=== PATIENT | female | born 1930 | race Caucasian/White ===

== ENCOUNTER 2018-10-04 13:25 | Inpatient (IN) ==
[2018-10-04 14:34] LABS: Hematocrit 32.5 % (37.0-47.0); Hemoglobin 10.4 g/dL (12.2-16.2); Lymphocytes # 0.4 K/mm3 (0.7-4.5); Lymphocytes % 2.8 % (10-50); Mean Corpuscular HGB Conc 31.9 g/dL (31.8-35.4); Mean Corpuscular Volume 96.6 fl (81-99); Mean Platelet Volume 6.3 fl (7.4-10.4); Monocytes # 1.1 K/mm3 (0.1-1.0); Monocytes % 7.9 % (1.7-9.3); Neutrophils % 89.3 % (37.0-80.0); Platelet Count 475 K/mm3 (142-424); Red Blood Count 3.37 M/mm3 (4.20-5.40); Red Cell Distribution Width 13.6 % (11.5-17.5); White Blood Count 13.5 K/mm3 (4.8-10.8)
--- NOTE | 2018-10-04 14:35 | Emergency Department Note ---
ED Disposition Clinical Impression: UTI (urinary tract infection), Pneumonia Disposition: Admitted as Observation Condition on Discharge: Fair Instructions: DI for Altered Mental Status Referrals: Pb Durham MD [Primary Care Provider] - Time of Disposition: 16:32 - Critical Care Critical Care Time: No Attestation: On 10/04/18, the high probability of a clinically significant, sudden or life threatening deterioration of the following system(s) required my full and direct attention, intervention and personal management. The time I documented below is in addition to time spent performing reported procedures but includes the following listed in this critical care notation. Medical Decision Making - Maury Inquiry Pt receiving controlled substance: No Maury was queried for this patient: No Vital Signs: 10/04/18 13:47 10/04/18 14:25 10/04/18 15:46 Temperature 98.2 F Temperature Source Rectal Pulse Rate [Left Radial] 122 H 114 H 86 Respiratory Rate 20 20 20 Blood Pressure [Right Arm] 135/72 134/84 132/68 Blood Pressure Mean [Right Arm] 93 100 89 Blood Pressure Source [Right Arm] Automatic Cuff Automatic Cuff Automatic Cuff Blood Pressure Position [Right Arm] Sitting Supine Supine 02 Sat by Pulse Oximetry 96 100 Oxygen Delivery Method Nasal Cannula Room Air Oxygen Flow Rate (LPM) 2 - Lab Data Lab results reviewed: Yes: I reviewed the patient's lab results. Lab Results 10/04/18 14:23: WBC 13.5 H, RBC 3.37 L, Hgb 10.4 L, Hct 32.5 L, MCV 96.6, MCH 30.8, MCHC 31.9, RDW 13.6, Plt Count 475 H, MPV 6.3 L, Neut % (Auto) 89.3 H, Lymph % (Auto) 2.8 L, [place] % (Auto) 7.9, Eos % (Auto) 0.0 L, Baso % (Auto) 0.0 L , Neut # (Auto) 12.0 H, Lymph # (Auto) 0.4 L, [place] # (Auto) 1.1 H, Eos # (Auto) 0.0, Baso # (Auto) 0.0, Total Counted 100, Neutrophils % (Manual) 92 H, Band Neutrophils % 6.0, Lymphocytes % (Manual) 1 L, Monocytes % (Manual) 1 L, Platelet Estimate Normal, Hypochromasia 1+ 10/04/18 14:23: Sodium 126 L, Potassium 3.0 L, Chloride 89 L, Carbon Dioxide 29, Anion Gap 11.0, BUN 11, Creatinine 0.75, Estimated Creat Clear 29, Estimated GFR 73, Est GFR ( Amer) 89, Glucose 146 H, Calcium 8.8, Total Bilirubin 1.0, AST 26, ALT 30, Alkaline Phosphatase 99, Total Protein 7.1, Albumin 2.5 L, Globulin 4.6 H, Albumin/Globulin Ratio 0.5 L 10/04/18 14:35: Urine Color Dk yellow, Urine Appearance Sl cloudy, Urine pH 6.0, Ur Specific [place] >= 1.030, Urine Protein 1+, Urine Glucose (UA) Negative, Urine Ketones Negative, Urine Blood 1+, Urine Nitrate Negative, Urine Bilirubin Negative, Urine Urobilinogen 4.0, Ur Leukocyte Esterase Negative, Urine WBC 10- 20, Ur Squamous Epith Cells 3-5, Urine Bacteria 4+, Hyaline Casts 5-10, Urine Mucus 4+ 10/04/18 15:15: Ammonia 25 Result diagrams: 10/04/18 14:23 10/04/18 14:23 Orders (Tests/Meds): ED MEDICATIONS Generic Name Dose Route Start Last Admin Trade Name Freq PRN Reason Stop Dose Admin Ceftriaxone Sodium 1 gm/ 50 mls @ 100 mls/hr 10/04/18 15:00 10/04/18 15:26 Sodium Chloride IV 10/18/18 14:59 100 mls/hr Q24H GOPI Administration Protocol Azithromycin 500 mg/ Sodium 250 mls @ 250 mls/hr 10/04/18 15:00 10/04/18 16:15 Chloride IV 10/18/18 14:59 250 mls/hr Q24H GOPI Administration Protocol Sodium Chloride 1,000 mls @ 200 mls/hr 10/04/18 15:15 10/04/18 15:23 Sod Chlor 0.9% 1000ml Bag IV 11/03/18 15:14 200 mls/hr .Q5H GOPI Administration ORDERS Category Date Time Status CT abdomen pelvis wo con Stat Cat Scan 10/04/18 14:03 Taken Urine Culture Stat Micro 10/04/18 14:35 Received - Physician Consults Physician Consulted: kulwant Time: 16:31 Reason -: Admission Altered Mental Status HPI - General Chief Complaint: Altered Mental Status Stated Complaint: ams Time Seen by Provider: 10/04/18 14:21 Mode of Arrival: EMS Source of Information: EMS Limitations: Altered Mental Status Description of Symptoms (Recalled from ER Triage Doc. 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 They went to check on her today and she was found beside her chair and walker on the floor. - History of Present Illness HPI narrative: found on floor gripping a chair. Answers all questions 'yeah". No obvious injuries. Last known "normal" for her was last night. Not sure how long she was on floor. MD complaint: altered mental status - Related Data Allergies Allergy/AdvReac Type Severity Reaction Status Date / Time hydrocodone Allergy Unknown UNKNOWN Verified 10/04/18 14:22 [facility] History - Hepatitis A Screen Drug use history?: No High risk sexual behaviors?: No History of sexually transmitted infection?: No Currently employed?: No Childcare worker?: No Do you have indoor plumbing?: Yes Do you have electricity?: Yes Attestation statement:: This patient has been screened for Hepatitis A risk factors. I have reviewed the patient's past medical history: No - Social History Alcohol Intake: never Occupational Status: retired ROS Obtained: Yes All systems reviewed & no additional complaints, Yes unobtainable due to mental condition Physical Exam - General General appearance: obtunded, other (opens eyes to command, but she is "blind" per family. lives alone) - ENT ENT exam: Present: normal exam, normal oropharynx, mucous membranes moist, TM's normal bilaterally, normal external ear exam - Neck Neck exam: Present: normal inspection, full ROM, trachea midline. Absent: meningismus, lymphadenopathy - Chest Chest inspection: Present: symmetric chest wall rise - Respiratory Respiratory exam: Present: normal lung sounds bilaterally. Absent: respiratory distress - Cardiovascular Cardiovascular exam: Present: normal rhythm, tachycardia. Absent: JVD - Abdominal Exam Abdominal exam: Present: soft, hernia. Absent: distention, tenderness - External exam: Present: normal external exam - Extremities Exam Extremities exam: Present: other (abrasion on right forearm. apparent pain with movement of left leg). Absent: normal inspection - Neurological Exam Neurological exam: Present: CN II-XII intact, other (difficult to assess). Absent: oriented X3 - Psychiatric Psychiatric exam: Present: flat affect - Skin Skin exam: Present: warm, dry, other (dermabrasion right forearm). Absent: intact
[2018-10-04 14:43] LABS: Microscopic, Urine URINE MICROSCOPIC (MICROSCOPIC)
[2018-10-04 14:45] LABS: Appearance,Urine SL CLOUDY (Clear); Blood, Urine 1+ (Negative); Color,Urine DK YELLOW (Yellow); Glucose,Urine (UA) Negative (Negative); Ketones,Urine Negative (Negative); Leukocyte Esterase,Urine Negative (Negative); Protein,Urine 1+ (Negative); Specific Gravity, Urine >= 1.030 (1.005-1.030)
[2018-10-04 14:45] LABS: Albumin Level 2.5 gm/dL (3.4-5.0); Albumin/Globulin Ratio 0.5 (1.1-1.8); Calcium 8.8 mg/dL (8.5-10.1); Globulin 4.6 gm/dl (1.3-3.2); Total Protein,Serum 7.1 gm/dL (6.4-8.2)
[2018-10-04 14:46] LABS: Bilirubin,Urine Negative (Negative)
[2018-10-04 14:52] LABS: Bacteria,Urine 4+ /lpf; Mucus,Urine 4+ /lpf
[2018-10-04 14:55] LABS: Lymphocytes % 1 % (10-50); Monocytes % 1 % (2-9); Neutrophils % 92 % (42-76); Total Cells Counted 100
[2018-10-04 14:56] LABS: Hypochromasia 1+
--- NOTE | 2018-10-04 18:12 | History & Physical Report ---
*Admission Date: 10/04/18 *Chief complaint: Altered mental status *History of present illness: Ms. Oconnor is an 88-year-old white female who was brought to the emergency room today with altered mental status. She has a history of hypertension. 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 She is generally spry and healthy and still lives alone despite these infirmities and her family checks on her regularly. She was last seen in her usual state of health last night. According to the family she has not been feeling well for about a week. She had diarrhea one day. She has not been eating or drinking well at home the past several days. She was found on the floor in her home this morning with altered mental status and was brought to the emergency room. She has been worked up in the ER and diagnosed with pneumonia, urinary tract infection, dehydration, and electrolyte imbalance. [facility] History Medical History: Reports:: Atrial Fibrillation, Hypertension, Valvular Heart Disease (Aortic stenosis) Denies:: Atherosclerotic Heart Disease, Congestive Heart Failure, Chronic Obstructive Pulmonary Disease (COPD), Diabetes Mellitus Type 2 *Have you ever received a pneumonia vaccine?: No *Have you received a flu vaccine this season?: No Other Medical History: Reports: Arthritis, Glaucoma. Denies: Hypothyroidism Laterality Cases: Bilateral: Cataract Other Surgeries: Yes: Other (Hemorrhoid surgery and several eye procedures) Amputation: No Fractures: Yes - *Social History Smoking Status: Former smoker (Quit 2001) Alcohol Intake: never *Occupational Status:: retired *Travel in the last 8 weeks: None Family Hx:: Cancer, Coronary Artery Disease, Hypertension, Stroke Review of Systems - Review of Systems Review of systems:: unable to obtain (Due to altered mental status) Meds Home Medications Medication Instructions Recorded Confirmed Type Amlodipine Besylate 10 mg PO DAILY 10/05/18 10/05/18 History Brimonidine Tartrate [Alphagan 1 drp EYE-BOTH TID 10/05/18 10/05/18 History 0.2% Ophth Soln 5mL] Latanoprost [Xalatan 0.005% Ophth 1 drp EYE-BOTH HS 10/05/18 10/05/18 History Soln 2.5mL] Allergies Allergy/AdvReac Type Severity Reaction Status Date / Time hydrocodone Allergy Unknown UNKNOWN Verified 10/04/18 14:22 Exam Vital signs and Labs for Last 24 Hours: Temp Pulse Resp BP Pulse Ox 98.2 F 89 18 125/79 91 L 10/04/18 17:55 10/04/18 17:55 10/04/18 17:55 10/04/18 17:55 10/04/18 17:55 Laboratory Results - last 24 hr 10/04/18 14:23: WBC 13.5 H, RBC 3.37 L, Hgb 10.4 L, Hct 32.5 L, MCV 96.6, MCH 30.8, MCHC 31.9, RDW 13.6, Plt Count 475 H, MPV 6.3 L, Neut % (Auto) 89.3 H, Lymph % (Auto) 2.8 L, [place] % (Auto) 7.9, Eos % (Auto) 0.0 L, Baso % (Auto) 0.0 L , Neut # (Auto) 12.0 H, Lymph # (Auto) 0.4 L, [place] # (Auto) 1.1 H, Eos # (Auto) 0.0, Baso # (Auto) 0.0, Total Counted 100, Neutrophils % (Manual) 92 H, Band Neutrophils % 6.0, Lymphocytes % (Manual) 1 L, Monocytes % (Manual) 1 L, Platelet Estimate Normal, Hypochromasia 1+ 10/04/18 14:23: Sodium 126 L, Potassium 3.0 L, Chloride 89 L, Carbon Dioxide 29, Anion Gap 11.0, BUN 11, Creatinine 0.75, Estimated Creat Clear 29, Estimated GFR 73, Est GFR ( Amer) 89, Glucose 146 H, Calcium 8.8, Total Bilirubin 1.0, AST 26, ALT 30, Alkaline Phosphatase 99, Total Protein 7.1, Albumin 2.5 L, Globulin 4.6 H, Albumin/Globulin Ratio 0.5 L 10/04/18 14:35: Urine Color Dk yellow, Urine Appearance Sl cloudy, Urine pH 6.0, Ur Specific [place] >= 1.030, Urine Protein 1+, Urine Glucose (UA) Negative, Urine Ketones Negative, Urine Blood 1+, Urine Nitrate Negative, Urine Bilirubin Negative, Urine Urobilinogen 4.0, Ur Leukocyte Esterase Negative, Urine WBC 10- 20, Ur Squamous Epith Cells 3-5, Urine Bacteria 4+, Hyaline Casts 5-10, Urine Mucus 4+ 10/04/18 15:15: Ammonia 25 I & O for Last 24 hours: Intake & Output 10/02/18 10/03/18 10/04/18 10/05/18 11:59 11:59 11:59 11:59 Weight 90 lb Narrative: She is lying in bed. She appears in no respiratory distress. Color is slightly pale. She opens her eyes but does not respond appropriately to questions. She answers "yes" to every question. Shows the cranium is atraumatic and normocephalic. The sclera conjunctive are clear. Nares patent. Oropharynx shows dry mucous membranes. Neck is supple with no masses or bruits. Heart is tachycardic with irregularly irregular rhythm. There is a grade 1/6 to 2/6 systolic murmur. Lungs with coarse breath sounds and scattered rhonchi. Diminished BS in right base. Abdomen is thin, soft, nondistended. No apparent tenderness. Extremities show no edema. Right arm is wrapped in gauze. Assessment and Plan (1) Altered mental status Current visit: Yes Status: Acute Category: Medical Code(s): R41.82 - Altered mental status, unspecified (2) Hyponatremia Current visit: Yes Status: Acute Category: Medical Code(s): E87.1 - Hypo- osmolality and hyponatremia (3) Hypokalemia Current visit: Yes Status: Acute Category: Medical Code(s): E87.6 - Hypokalemia (4) Hypertension Current visit: Yes Status: Acute Category: Medical Code(s): I10 - Essential (primary) hypertension (5) SIRS (systemic inflammatory response syndrome) Current visit: Yes Status: Acute Category: Medical Code(s): R65.10 - Systemic inflammatory response syndrome (SIRS) of non-infectious origin without acute organ dysfunction (6) Aortic stenosis Current visit: Yes Status: Acute Category: Medical Code(s): I35.0 - Nonrheumatic aortic (valve) stenosis (7) Glaucoma Current visit: Yes Status: Acute Category: Medical Code(s): H40.9 - Unspecified glaucoma (8) Legally blind Current visit: Yes Status: Acute Category: Medical Code(s): H54.8 - Legal blindness, as defined in [place] (9) Pneumonia Current visit: Yes Status: Acute Category: Medical Code(s): J18.9 - Pneumonia, unspecified organism (10) UTI (urinary tract infection) Current visit: Yes Status: Acute Category: Medical Code(s): N39.0 - Urinary tract infection, site not specified - Assessment and plan all Dx Assessment and Plan for all problems:: She is admitted for further treatment and evaluation. Her altered mental status is most likely on the basis of infection, electrolyte abnormalities, and dehydration although cannot rule out a neurologic event. Her initial noncontrast CT scan shows nothing acute but may require further evaluation if she does not respond appropriately to treatment of her infections. She has empirically been started on IV Rocephin and Zithromax pending results of cultures. In regards to her aortic stenosis, her last echo in 2017 showed a 20 mm gradient. She has elected not to pursue any intervention or further testing for this. She has noted a DNR status and her wishes will be honored.
--- NOTE | 2018-10-05 07:33 | Pharmacy Consult Notes ---
[facility] Pharmacy VTE Monitoring - Patient Demographics Admission date: 10/04/18 Report Date: 10/05/18 Time: 07:33 Allergies/Adverse Reactions: Patient Allergies hydrocodone Allergy (Unknown, Verified 10/04/18 14:22) UNKNOWN Height: 1.57 m Weight: 40.823 kg Patient Problems: Current Active Problems UTI (urinary tract infection) (Acute) Pneumonia (Acute) Altered mental status (Acute) Hyponatremia (Acute) Hypokalemia (Acute) Hypertension (Acute) SIRS (systemic inflammatory response syndrome) (Acute) Aortic stenosis (Acute) Glaucoma (Acute) Legally blind (Acute) - VTE Risk Labs: VTE Related Lab Results Hgb 10.4 g/dL (12.2-16.2) L 10/04/18 14:23 Hct 32.5 % (37.0-47.0) L 10/04/18 14:23 Plt Count 475 K/mm3 (142-424) H 10/04/18 14:23 BUN 11 mg/dL (7-18) 10/04/18 14:23 Creatinine 0.75 mg/dL (0.55-1.02) 10/04/18 14:23 Estimated Creat Clear 29 mL/min (50-200) 10/04/18 14:23 VTE Score: 2 VTE Risk Level: Very Low Risk - Prophylaxis VTE Prophylaxis Ordered?: Yes Types of VTE Prophylaxis: TEDS Knee High Location of Applied Device: Bilateral Lower Extremeties - VTE Diagnosis Confirmed Treatment or plan recommended: Continue Current Treatment
[2018-10-05 07:37] LABS: Anion Gap 8.2 mEq/L (5-15); Calcium 8.2 mg/dL (8.5-10.1)
[2018-10-05 08:01] LABS: Basophils % 0.1 % (0.1-2.0); Eosinophils % 0.1 % (0.1-12.0); Hematocrit 32.9 % (37.0-47.0); Hemoglobin 10.7 g/dL (12.2-16.2); Lymphocytes # 0.6 K/mm3 (0.7-4.5); Lymphocytes % 4.7 % (10-50); Mean Corpuscular HGB Conc 32.5 g/dL (31.8-35.4); Mean Corpuscular Volume 96.1 fl (81-99); Mean Platelet Volume 7.1 fl (7.4-10.4); Monocytes # 1.3 K/mm3 (0.1-1.0); Monocytes % 10.9 % (1.7-9.3); Neutrophils # 9.8 K/mm3 (1.8-7.8); Neutrophils % 84.2 % (37.0-80.0); Platelet Count 431 K/mm3 (142-424); Red Blood Count 3.42 M/mm3 (4.20-5.40); Red Cell Distribution Width 13.5 % (11.5-17.5); White Blood Count 11.6 K/mm3 (4.8-10.8)
--- NOTE | 2018-10-05 08:29 | Progress Note ---
<Mary Ohara - Last Filed: 10/05/18 08:25> Internal Medicine - PN: Subj *Date: 10/05/18 *Time: 08:25 Interval history: Patient answers okay to every question. She is disoriented. Per nursing: She became agitated during the night when being given a bath at 4 AM.. Was eventually calmed. She only took a few bites of breakfast. Exam Vital signs and Labs for Last 24 Hours: Temp Pulse Resp BP Pulse Ox 98.0 F 86 15 127/73 96 10/05/18 08:00 10/05/18 08:00 10/05/18 08:00 10/05/18 08:00 10/05/18 08:00 Laboratory Results - last 24 hr 10/04/18 14:23: WBC 13.5 H, RBC 3.37 L, Hgb 10.4 L, Hct 32.5 L, MCV 96.6, MCH 30.8, MCHC 31.9, RDW 13.6, Plt Count 475 H, MPV 6.3 L, Neut % (Auto) 89.3 H, Lymph % (Auto) 2.8 L, [place] % (Auto) 7.9, Eos % (Auto) 0.0 L, Baso % (Auto) 0.0 L , Neut # (Auto) 12.0 H, Lymph # (Auto) 0.4 L, [place] # (Auto) 1.1 H, Eos # (Auto) 0.0, Baso # (Auto) 0.0, Total Counted 100, Neutrophils % (Manual) 92 H, Band Neutrophils % 6.0, Lymphocytes % (Manual) 1 L, Monocytes % (Manual) 1 L, Platelet Estimate Normal, Hypochromasia 1+ 10/04/18 14:23: Sodium 126 L, Potassium 3.0 L, Chloride 89 L, Carbon Dioxide 29, Anion Gap 11.0, BUN 11, Creatinine 0.75, Estimated Creat Clear 29, Estimated GFR 73, Est GFR ( Amer) 89, Glucose 146 H, Calcium 8.8, Total Bilirubin 1.0, AST 26, ALT 30, Alkaline Phosphatase 99, Total Protein 7.1, Albumin 2.5 L, Globulin 4.6 H, Albumin/Globulin Ratio 0.5 L 10/04/18 14:35: Urine Color Dk yellow, Urine Appearance Sl cloudy, Urine pH 6.0, Ur Specific [place] >= 1.030, Urine Protein 1+, Urine Glucose (UA) Negative, Urine Ketones Negative, Urine Blood 1+, Urine Nitrate Negative, Urine Bilirubin Negative, Urine Urobilinogen 4.0, Ur Leukocyte Esterase Negative, Urine WBC 10- 20, Ur Squamous Epith Cells 3-5, Urine Bacteria 4+, Hyaline Casts 5-10, Urine Mucus 4+ 10/04/18 15:15: Ammonia 25 10/04/18 18:11: Lactate 1.5 10/05/18 07:07: WBC 11.6 H, RBC 3.42 L, Hgb 10.7 L, Hct 32.9 L, MCV 96.1, MCH 31.2, MCHC 32.5, RDW 13.5, Plt Count 431 H, MPV 7.1 L, Neut % (Auto) 84.2 H, Lymph % (Auto) 4.7 L, [place] % (Auto) 10.9 H, Eos % (Auto) 0.1, Baso % (Auto) 0.1, Neut # (Auto) 9.8 H, Lymph # (Auto) 0.6 L, [place] # (Auto) 1.3 H, Eos # (Auto) 0.0, Baso # (Auto) 0.0 10/05/18 07:07: Sodium 124 L, Potassium 3.2 L, Chloride 89 L, Carbon Dioxide 30, Anion Gap 8.2, BUN 5 L D, Creatinine 0.44 L D, Estimated Creat Clear 26, Estimated GFR 136, Est GFR ( Amer) 164 D, Glucose 73 L D, Calcium 8.2 L I & O for Last 24 hours: Intake & Output 10/02/18 10/03/18 10/04/18 10/05/18 11:59 11:59 11:59 11:59 Intake Total 1231 / 1231 Output Total 1675 / 1675 Balance -444 / -444 Weight 90 lb Radiology Reports for the Last 24 Hours: 10/04/2018 cervical spine x-ray IMPRESSION: 1. No acute fracture. 2. Postsurgical and degenerative changes as described above 10/04/[address] IMPRESSION: No acute intracranial findings 10/04/2018 pelvic x-ray IMPRESSION: No acute finding 10/04/2018 chest x-ray IMPRESSION: Right lower lobe pneumonia with effusion. Chronic changes 10/04/[address] IMPRESSION: 1. Right lower lobe pneumonia with effusion. 2. Severe constipation. Gas-filled loops of small and large bowel are also noted which could be due to ileus as well. - Constitutional no acute distress Comments: Lying on her back with eyes wide open. Dyspnea when assisted to sitting position for chest assessment. Unable to sit without help. - *Routine Respiratory Exam Comments: Diminished breath sounds on the right. - *Routine Cardiovascular Exam Present: irregular rhythm Comments: Systolic murmur grade 2/6 - *Routine Abdominal Exam Present: soft, normoactive bowel sounds. Absent: tenderness - *Routine Extremities Exam Absent: edema, calf tenderness - *Routine Skin Exam Present: dry - *Routine Neurological Exam Present: alert. Absent: oriented X3 Assessment and Plan (1) Altered mental status Current visit: Yes Status: Acute Category: Medical Code(s): R41.82 - Altered mental status, unspecified (2) Hyponatremia Current visit: Yes Status: Acute Category: Medical Code(s): E87.1 - Hypo- osmolality and hyponatremia (3) Hypokalemia Current visit: Yes Status: Acute Category: Medical Code(s): E87.6 - Hypokalemia (4) Hypertension Current visit: Yes Status: Acute Category: Medical Code(s): I10 - Essential (primary) hypertension (5) SIRS (systemic inflammatory response syndrome) Current visit: Yes Status: Acute Category: Medical Code(s): R65.10 - Systemic inflammatory response syndrome (SIRS) of non-infectious origin without acute organ dysfunction (6) Aortic stenosis Current visit: Yes Status: Acute Category: Medical Code(s): I35.0 - Nonrheumatic aortic (valve) stenosis (7) Glaucoma Current visit: Yes Status: Acute Category: Medical Code(s): H40.9 - Unspecified glaucoma (8) Legally blind Current visit: Yes Status: Acute Category: Medical Code(s): H54.8 - Legal blindness, as defined in [place] (9) Pneumonia Current visit: Yes Status: Acute Category: Medical Code(s): J18.9 - Pneumonia, unspecified organism (10) UTI (urinary tract infection) Current visit: Yes Status: Acute Category: Medical Code(s): N39.0 - Urinary tract infection, site not specified (11) Constipation Current visit: Yes Status: Acute Category: Medical Code(s): K59.00 - Constipation, unspecified - Assessment and plan all Dx Assessment and Plan for all problems:: We need Dulcolax suppository. Continue with antibiotics, IV fluids, and will initiate duo nebs <Brent Coleian - Last Filed: 10/05/18 08:59> Internal Medicine - PN: Subj *Date: 10/05/18 *Time: 08:59 Exam Vital signs and Labs for Last 24 Hours: Temp Pulse Resp BP Pulse Ox 98.0 F 86 15 127/73 96 10/05/18 08:00 10/05/18 08:00 10/05/18 08:00 10/05/18 08:00 10/05/18 08:00 Laboratory Results - last 24 hr 10/04/18 14:23: WBC 13.5 H, RBC 3.37 L, Hgb 10.4 L, Hct 32.5 L, MCV 96.6, MCH 30.8, MCHC 31.9, RDW 13.6, Plt Count 475 H, MPV 6.3 L, Neut % (Auto) 89.3 H, Lymph % (Auto) 2.8 L, [place] % (Auto) 7.9, Eos % (Auto) 0.0 L, Baso % (Auto) 0.0 L , Neut # (Auto) 12.0 H, Lymph # (Auto) 0.4 L, [place] # (Auto) 1.1 H, Eos # (Auto) 0.0, Baso # (Auto) 0.0, Total Counted 100, Neutrophils % (Manual) 92 H, Band Neutrophils % 6.0, Lymphocytes % (Manual) 1 L, Monocytes % (Manual) 1 L, Platelet Estimate Normal, Hypochromasia 1+ 10/04/18 14:23: Sodium 126 L, Potassium 3.0 L, Chloride 89 L, Carbon Dioxide 29, Anion Gap 11.0, BUN 11, Creatinine 0.75, Estimated Creat Clear 29, Estimated GFR 73, Est GFR ( Amer) 89, Glucose 146 H, Calcium 8.8, Total Bilirubin 1.0, AST 26, ALT 30, Alkaline Phosphatase 99, Total Protein 7.1, Albumin 2.5 L, Globulin 4.6 H, Albumin/Globulin Ratio 0.5 L 10/04/18 14:35: Urine Color Dk yellow, Urine Appearance Sl cloudy, Urine pH 6.0, Ur Specific [place] >= 1.030, Urine Protein 1+, Urine Glucose (UA) Negative, Urine Ketones Negative, Urine Blood 1+, Urine Nitrate Negative, Urine Bilirubin Negative, Urine Urobilinogen 4.0, Ur Leukocyte Esterase Negative, Urine WBC 10- 20, Ur Squamous Epith Cells 3-5, Urine Bacteria 4+, Hyaline Casts 5-10, Urine Mucus 4+ 10/04/18 15:15: Ammonia 25 10/04/18 18:11: Lactate 1.5 10/05/18 07:07: WBC 11.6 H, RBC 3.42 L, Hgb 10.7 L, Hct 32.9 L, MCV 96.1, MCH 31.2, MCHC 32.5, RDW 13.5, Plt Count 431 H, MPV 7.1 L, Neut % (Auto) 84.2 H, Lymph % (Auto) 4.7 L, [place] % (Auto) 10.9 H, Eos % (Auto) 0.1, Baso % (Auto) 0.1, Neut # (Auto) 9.8 H, Lymph # (Auto) 0.6 L, [place] # (Auto) 1.3 H, Eos # (Auto) 0.0, Baso # (Auto) 0.0 10/05/18 07:07: Sodium 124 L, Potassium 3.2 L, Chloride 89 L, Carbon Dioxide 30, Anion Gap 8.2, BUN 5 L D, Creatinine 0.44 L D, Estimated Creat Clear 26, Estimated GFR 136, Est GFR ( Amer) 164 D, Glucose 73 L D, Calcium 8.2 L I & O for Last 24 hours: Intake & Output 10/02/18 10/03/18 10/04/18 10/05/18 23:59 23:59 23:59 23:59 Intake Total 100 / 100 1131 / 1131 Output Total 775 / 775 900 / 900 Balance -675 / -675 231 / 231 Weight 90 lb 90 lb Assessment and Plan (1) Altered mental status Current visit: Yes Status: Acute Category: Medical Code(s): R41.82 - Altered mental status, unspecified (2) Hyponatremia Current visit: Yes Status: Acute Category: Medical Code(s): E87.1 - Hypo- osmolality and hyponatremia (3) Hypokalemia Current visit: Yes Status: Acute Category: Medical Code(s): E87.6 - Hypokalemia (4) Hypertension Current visit: Yes Status: Acute Category: Medical Code(s): I10 - Essential (primary) hypertension (5) SIRS (systemic inflammatory response syndrome) Current visit: Yes Status: Acute Category: Medical Code(s): R65.10 - Systemic inflammatory response syndrome (SIRS) of non-infectious origin without acute organ dysfunction (6) Aortic stenosis Current visit: Yes Status: Acute Category: Medical Code(s): I35.0 - Nonrheumatic aortic (valve) stenosis (7) Glaucoma Current visit: Yes Status: Acute Category: Medical Code(s): H40.9 - Unspecified glaucoma (8) Legally blind Current visit: Yes Status: Acute Category: Medical Code(s): H54.8 - Legal blindness, as defined in [place] (9) Pneumonia Current visit: Yes Status: Acute Category: Medical Code(s): J18.9 - Pneumonia, unspecified organism (10) UTI (urinary tract infection) Current visit: Yes Status: Acute Category: Medical Code(s): N39.0 - Urinary tract infection, site not specified (11) Constipation Current visit: Yes Status: Acute Category: Medical Code(s): K59.00 - Constipation, unspecified - Assessment and plan all Dx Assessment and Plan for all problems:: Saw patient, agree with above note.
[2018-10-06 07:04] LABS: Basophils % 0.1 % (0.1-2.0); Hematocrit 34.2 % (37.0-47.0); Hemoglobin 10.7 g/dL (12.2-16.2); Lymphocytes # 0.5 K/mm3 (0.7-4.5); Lymphocytes % 4.5 % (10-50); Mean Corpuscular HGB Conc 31.1 g/dL (31.8-35.4); Mean Corpuscular Volume 98.3 fl (81-99); Mean Platelet Volume 6.5 fl (7.4-10.4); Monocytes # 0.8 K/mm3 (0.1-1.0); Monocytes % 7.8 % (1.7-9.3); Neutrophils # 8.7 K/mm3 (1.8-7.8); Neutrophils % 87.5 % (37.0-80.0); Platelet Count 493 K/mm3 (142-424); Red Blood Count 3.48 M/mm3 (4.20-5.40); Red Cell Distribution Width 13.4 % (11.5-17.5); White Blood Count 9.9 K/mm3 (4.8-10.8)
[2018-10-06 07:07] LABS: Anion Gap 13.1 mEq/L (5-15); Calcium 8.5 mg/dL (8.5-10.1)
--- NOTE | 2018-10-06 08:05 | Progress Note ---
<Lizzie Espinoza - Last Filed: 10/06/18 08:02> Internal Medicine - PN: Subj *Date: 10/06/18 *Time: 08:02 Interval history: Patient is very confused and somewhat agitated this morning. She asks for milk but when given milk she says that is not what she wants. She is able to answer a few questions. She states she is not hungry. Exam Vital signs and Labs for Last 24 Hours: Temp Pulse Resp BP Pulse Ox 97.7 F 80 20 135/67 94 L 10/06/18 04:00 10/06/18 05:44 10/06/18 04:00 10/06/18 04:00 10/06/18 05:44 Laboratory Results - last 24 hr 10/05/18 07:07: WBC 11.6 H, RBC 3.42 L, Hgb 10.7 L, Hct 32.9 L, MCV 96.1, MCH 31.2, MCHC 32.5, RDW 13.5, Plt Count 431 H, MPV 7.1 L, Neut % (Auto) 84.2 H, Lymph % (Auto) 4.7 L, [place] % (Auto) 10.9 H, Eos % (Auto) 0.1, Baso % (Auto) 0.1, Neut # (Auto) 9.8 H, Lymph # (Auto) 0.6 L, [place] # (Auto) 1.3 H, Eos # (Auto) 0.0, Baso # (Auto) 0.0 10/06/18 06:38: WBC 9.9, RBC 3.48 L, Hgb 10.7 L, Hct 34.2 L, MCV 98.3, MCH 30.6, MCHC 31.1 L, RDW 13.4, Plt Count 493 H, MPV 6.5 L, Neut % (Auto) 87.5 H, Lymph % (Auto) 4.5 L, [place] % (Auto) 7.8, Eos % (Auto) 0.0 L, Baso % (Auto) 0.1, Neut # (Auto) 8.7 H, Lymph # (Auto) 0.5 L, [place] # (Auto) 0.8, Eos # (Auto) 0.0, Baso # (Auto) 0.0 10/06/18 06:38: Sodium 130 L, Potassium 3.1 L, Chloride 95 L, Carbon Dioxide 25, Anion Gap 13.1, BUN 6 L, Creatinine 0.42 L, Estimated Creat Clear 26, Estimated GFR 143, Est GFR ( Amer) 173, Glucose 69 L, Calcium 8.5 I & O for Last 24 hours: Intake & Output 10/03/18 10/04/18 10/05/18 10/06/18 11:59 11:59 11:59 11:59 Intake Total 1231 / 1231 2401 / 2401 Output Total 1675 / 1675 1225 / 1225 Balance -444 / -444 1176 / 1176 Weight 90 lb 89 lb 1.6 oz Microbiology Reports for the Last 24 Hours: Microbiology 10/04/18 14:35 Urine,Catheterized Urine Culture - Preliminary NO GROWTH AFTER 24 HOURS - Constitutional no acute distress - *Routine Respiratory Exam Present: decreased breath sounds - *Routine Cardiovascular Exam Present: RRR, irregular rhythm - *Routine Abdominal Exam Present: soft, normoactive bowel sounds. Absent: tenderness - *Routine Extremities Exam Absent: cyanosis, clubbing, edema - *Routine Skin Exam Present: warm. Absent: rash - *Routine Neurological Exam Present: altered mental status Assessment and Plan (1) Altered mental status Current visit: Yes Status: Acute Category: Medical Code(s): R41.82 - Altered mental status, unspecified (2) Hyponatremia Current visit: Yes Status: Acute Category: Medical Code(s): E87.1 - Hypo- osmolality and hyponatremia (3) Hypokalemia Current visit: Yes Status: Acute Category: Medical Code(s): E87.6 - Hypokalemia (4) Hypertension Current visit: Yes Status: Acute Category: Medical Code(s): I10 - Essential (primary) hypertension (5) SIRS (systemic inflammatory response syndrome) Current visit: Yes Status: Acute Category: Medical Code(s): R65.10 - Systemic inflammatory response syndrome (SIRS) of non-infectious origin without acute organ dysfunction (6) Aortic stenosis Current visit: Yes Status: Acute Category: Medical Code(s): I35.0 - Nonrheumatic aortic (valve) stenosis (7) Glaucoma Current visit: Yes Status: Acute Category: Medical Code(s): H40.9 - Unspecified glaucoma (8) Legally blind Current visit: Yes Status: Acute Category: Medical Code(s): H54.8 - Legal blindness, as defined in [place] (9) Pneumonia Current visit: Yes Status: Acute Category: Medical Code(s): J18.9 - Pneumonia, unspecified organism (10) UTI (urinary tract infection) Current visit: Yes Status: Acute Category: Medical Code(s): N39.0 - Urinary tract infection, site not specified - Assessment and plan all Dx Assessment and Plan for all problems:: We will continue IV antibiotics. Patient's urine culture shows no growth at 24 hours. Awaiting blood cultures. We will get a repeat chest x-ray today and labs tomorrow. <Pb Durham - Last Filed: 10/07/18 13:44> Internal Medicine - PN: Subj *Date: 10/07/18 *Time: 13:42 Exam Vital signs and Labs for Last 24 Hours: Temp Pulse Resp BP Pulse Ox 98.8 F 87 17 126/86 95 10/07/18 11:38 10/07/18 13:24 10/07/18 11:38 10/07/18 11:38 10/07/18 11:38 Laboratory Results - last 24 hr 10/07/18 06:34: WBC 10.6, RBC 3.57 L, Hgb 11.1 L, Hct 35.5 L, MCV 99.5 H, MCH 31.2, MCHC 31.4 L, RDW 13.5, Plt Count 527 H, MPV 7.0 L, Neut % (Auto) 88.4 H, Lymph % (Auto) 3.3 L, [place] % (Auto) 8.1, Eos % (Auto) 0.2, Baso % (Auto) 0.1, Neut # (Auto) 9.3 H, Lymph # (Auto) 0.4 L, [place] # (Auto) 0.9, Eos # (Auto) 0.0, Baso # (Auto) 0.0, Total Counted 100, Neutrophils % (Manual) 93 H, Lymphocytes % (Manual) 3 L, Monocytes % (Manual) 4, Platelet Estimate Slight increase, RBC Morphology Normal 10/07/18 06:34: Sodium 134 L, Potassium 3.3 L, Chloride 95 L, Carbon Dioxide 26, Anion Gap 16.3 H, BUN 7, Creatinine 0.38 L, Estimated Creat Clear 27, Estimated GFR 161, Est GFR ( Amer) 194, Glucose 81, Calcium 8.8, Total Bilirubin 0.5, AST 30, ALT 26, Alkaline Phosphatase 98, Total Protein 6.9, Albumin 2.2 L, Globulin 4.7 H, Albumin/Globulin Ratio 0.5 L I & O for Last 24 hours: Intake & Output 10/05/18 10/06/18 10/07/18 10/08/18 11:59 11:59 11:59 11:59 Intake Total 1231 / 1231 2521 / 2521 2242 / 2242 120 / 120 Output Total 1675 / 1675 1225 / 1225 1300 / 1300 Balance -444 / -444 1296 / 1296 942 / 942 120 / 120 Weight 90 lb 89 lb 1.6 oz 93 lb 9 oz Microbiology Reports for the Last 24 Hours: Microbiology 10/04/18 18:08 Blood Blood Culture - Preliminary NO GROWTH AFTER 48 HOURS 10/04/18 18:11 Blood Blood Culture - Preliminary NO GROWTH AFTER 48 HOURS 10/04/18 14:35 Urine,Catheterized Urine Culture - Final NO GROWTH AFTER 48 HOURS Assessment and Plan (1) Altered mental status Current visit: Yes Status: Acute Category: Medical Code(s): R41.82 - Altered mental status, unspecified (2) Hyponatremia Current visit: Yes Status: Acute Category: Medical Code(s): E87.1 - Hypo- osmolality and hyponatremia (3) Hypokalemia Current visit: Yes Status: Acute Category: Medical Code(s): E87.6 - Hypokalemia (4) Hypertension Current visit: Yes Status: Acute Category: Medical Code(s): I10 - E ssential (primary) hypertension (5) SIRS (systemic inflammatory response syndrome) Current visit: Yes Status: Acute Category: Medical Code(s): R65.10 - Systemic inflammatory response syndrome (SIRS) of non-infectious origin without acute organ dysfunction (6) Aortic stenosis Current visit: Yes Status: Acute Category: Medical Code(s): I35.0 - Nonrheumatic aortic (valve) stenosis (7) Glaucoma Current visit: Yes Status: Acute Category: Medical Code(s): H40.9 - Unspecified glaucoma (8) Legally blind Current visit: Yes Status: Acute Category: Medical Code(s): H54.8 - Legal blindness, as defined in [place] (9) Pneumonia Current visit: Yes Status: Acute Category: Medical Code(s): J18.9 - Pneumonia, unspecified organism (10) UTI (urinary tract infection) Current visit: Yes Status: Acute Category: Medical Code(s): N39.0 - Urinary tract infection, site not specified (11) Left-sided cerebrovascular accident (CVA) Current visit: Yes Status: Acute Category: Medical Code(s): I63.9 - Cerebral infarction, unspecified (12) Right hemiparesis Current visit: Yes Status: Acute Category: Medical Code(s): G81.91 - Hemiplegia, unspecified affecting right dominant side - Assessment and plan all Dx Assessment and Plan for all problems:: Patient seen and examined early on rounds this AM. She answers yes/no questions but remains confused. No respiratory distress. Lungs are very congested. Will repeat CXR and continue current antibiotics pending cultures.
[2018-10-06 09:54] LABS: Lymphocytes % 3 % (10-50); Monocytes % 4 % (2-9); Neutrophils % 93 % (42-76); Total Cells Counted 100
[2018-10-06 09:56] LABS: RBC Morphology Normal
--- NOTE | 2018-10-06 18:11 | Progress Note ---
Internal Medicine - PN: Subj *Date: 10/06/18 *Time: 18:12 Interval history: About 1000 today the patient's mental status worsened, speech became more garbled and she lost use of the right arm. MRI obtained this afternoon shows CVA involving area of 4 cm: IMPRESSION: Acute infarction in the left temporal lobe extending into the temporal occipital junction, left external capsule, she in the and the subinsular region on the left. Exam Vital signs and Labs for Last 24 Hours: Temp Pulse Resp BP Pulse Ox 98.2 F 113 H 20 122/80 94 L 10/06/18 16:00 10/06/18 16:00 10/06/18 16:00 10/06/18 16:00 10/06/18 16:00 Laboratory Results - last 24 hr 10/06/18 06:38: WBC 9.9, RBC 3.48 L, Hgb 10.7 L, Hct 34.2 L, MCV 98.3, MCH 30.6, MCHC 31.1 L, RDW 13.4, Plt Count 493 H, MPV 6.5 L, Neut % (Auto) 87.5 H, Lymph % (Auto) 4.5 L, [place] % (Auto) 7.8, Eos % (Auto) 0.0 L, Baso % (Auto) 0.1, Neut # (Auto) 8.7 H, Lymph # (Auto) 0.5 L, [place] # (Auto) 0.8, Eos # (Auto) 0.0, Baso # (Auto) 0.0, Total Counted 100, Neutrophils % (Manual) 93 H, Lymphocytes % (Manual) 3 L, Monocytes % (Manual) 4, Platelet Estimate Slight increase, RBC Morphology Normal 10/06/18 06:38: Sodium 130 L, Potassium 3.1 L, Chloride 95 L, Carbon Dioxide 25, Anion Gap 13.1, BUN 6 L, Creatinine 0.42 L, Estimated Creat Clear 26, Estimated GFR 143, Est GFR ( Amer) 173, Glucose 69 L, Calcium 8.5 I & O for Last 24 hours: Intake & Output 10/04/18 10/05/18 10/06/18 10/07/18 11:59 11:59 11:59 11:59 Intake Total 1231 / 1231 2521 / 2521 943 / 943 Output Total 1675 / 1675 1225 / 1225 Balance -444 / -444 1296 / 1296 943 / 943 Weight 90 lb 89 lb 1.6 oz 89 lb 1.597 oz Microbiology Reports for the Last 24 Hours: Microbiology 10/04/18 14:35 Urine,Catheterized Urine Culture - Final NO GROWTH AFTER 48 HOURS - Constitutional Comments: She is lying quietly in bed. She does not respond to questions but does mumble a bit. Her pupils are equal and slightly reactive to light. Her heart rate is regular. She does not seem to have movement or use of her right arm. - *Routine Respiratory Exam Present: CTA bilaterally. Absent: respiratory distress - *Routine Cardiovascular Exam Present: RRR - *Routine Extremities Exam Absent: edema - *Routine Neurological Exam Apparent loss of use of the right arm. Assessment and Plan (1) Altered mental status Current visit: Yes Status: Acute Category: Medical Code(s): R41.82 - Altered mental status, unspecified (2) Hyponatremia Current visit: Yes Status: Acute Category: Medical Code(s): E87.1 - Hypo- osmolality and hyponatremia (3) Hypokalemia Current visit: Yes Status: Acute Category: Medical Code(s): E87.6 - Hyp okalemia (4) Hypertension Current visit: Yes Status: Acute Category: Medical Code(s): I10 - Essential (primary) hypertension (5) SIRS (systemic inflammatory response syndrome) Current visit: Yes Status: Acute Category: Medical Code(s): R65.10 - Systemic inflammatory response syndrome (SIRS) of non-infectious origin without acute organ dysfunction (6) Aortic stenosis Current visit: Yes Status: Acute Category: Medical Code(s): I35.0 - Nonrheumatic aortic (valve) stenosis (7) Glaucoma Current visit: Yes Status: Acute Category: Medical Code(s): H40.9 - Unspecified glaucoma (8) Legally blind Current visit: Yes Status: Acute Category: Medical Code(s): H54.8 - Legal blindness, as defined in [place] (9) Pneumonia Current visit: Yes Status: Acute Category: Medical Code(s): J18.9 - Pneumonia, unspecified organism (10) UTI (urinary tract infection) Current visit: Yes Status: Acute Category: Medical Code(s): N39.0 - Urinary tract infection, site not specified (11) Left-sided cerebrovascular accident (CVA) Current visit: Yes Status: Acute Category: Medical Code(s): I63.9 - Cerebral infarction, unspecified (12) Right hemiparesis Current visit: Yes Status: Acute Category: Medical Code(s): G81.91 - Hemiplegia, unspecified affecting right dominant side - Assessment and plan all Dx Assessment and Plan for all problems:: The time frame work and the age of the patient, plus DNR, mitigate against intervention. I will initiate Lovenox.
[2018-10-07 07:17] LABS: Basophils % 0.1 % (0.1-2.0); Eosinophils % 0.2 % (0.1-12.0); Hematocrit 35.5 % (37.0-47.0); Hemoglobin 11.1 g/dL (12.2-16.2); Lymphocytes # 0.4 K/mm3 (0.7-4.5); Lymphocytes % 3.3 % (10-50); Mean Corpuscular HGB Conc 31.4 g/dL (31.8-35.4); Mean Corpuscular Volume 99.5 fl (81-99); Monocytes # 0.9 K/mm3 (0.1-1.0); Monocytes % 8.1 % (1.7-9.3); Neutrophils # 9.3 K/mm3 (1.8-7.8); Neutrophils % 88.4 % (37.0-80.0); Platelet Count 527 K/mm3 (142-424); Red Blood Count 3.57 M/mm3 (4.20-5.40); Red Cell Distribution Width 13.5 % (11.5-17.5); White Blood Count 10.6 K/mm3 (4.8-10.8)
[2018-10-07 07:51] LABS: Albumin Level 2.2 gm/dL (3.4-5.0); Albumin/Globulin Ratio 0.5 (1.1-1.8); Anion Gap 16.3 mEq/L (5-15); Bilirubin,Total 0.5 mg/dL (0.2-1.0); Calcium 8.8 mg/dL (8.5-10.1); Globulin 4.7 gm/dl (1.3-3.2); Total Protein,Serum 6.9 gm/dL (6.4-8.2)
--- NOTE | 2018-10-07 08:09 | Progress Note ---
<Lizzie Espinoza - Last Filed: 10/07/18 08:05> Internal Medicine - PN: Subj *Date: 10/07/18 *Time: 08:05 Interval history: Patient seems to be a little bit better this morning. She is still confused but is no longer agitated. She can move her right arm and right leg slightly this morning. She is able to answer questions. She denies any pain. Exam Vital signs and Labs for Last 24 Hours: Temp Pulse Resp BP Pulse Ox 97.8 F 88 21 137/81 89 L 10/07/18 04:00 10/07/18 06:10 10/07/18 04:00 10/07/18 04:00 10/07/18 06:10 Laboratory Results - last 24 hr 10/06/18 06:38: Total Counted 100, Neutrophils % (Manual) 93 H, Lymphocytes % (Manual) 3 L, Monocytes % (Manual) 4, Platelet Estimate Slight increase, RBC Morphology Normal 10/07/18 06:34: WBC 10.6, RBC 3.57 L, Hgb 11.1 L, Hct 35.5 L, MCV 99.5 H, MCH 31.2, MCHC 31.4 L, RDW 13.5, Plt Count 527 H, MPV 7.0 L, Neut % (Auto) 88.4 H, Lymph % (Auto) 3.3 L, [place] % (Auto) 8.1, Eos % (Auto) 0.2, Baso % (Auto) 0.1, Neut # (Auto) 9.3 H, Lymph # (Auto) 0.4 L, [place] # (Auto) 0.9, Eos # (Auto) 0.0, Baso # (Auto) 0.0 10/07/18 06:34: Sodium 134 L, Potassium 3.3 L, Chloride 95 L, Carbon Dioxide 26, Anion Gap 16.3 H, BUN 7, Creatinine 0.38 L, Estimated Creat Clear 27, Estimated GFR 161, Est GFR ( Amer) 194, Glucose 81, Calcium 8.8, Total Bilirubin 0.5, AST 30, ALT 26, Alkaline Phosphatase 98, Total Protein 6.9, Albumin 2.2 L, Globulin 4.7 H, Albumin/Globulin Ratio 0.5 L I & O for Last 24 hours: Intake & Output 08/12/10/05/18 10/06/18 10/07/18 11:59 11:59 11:59 11:59 Intake Total 1231 / 1231 2521 / 2521 2001 Output Total 1675 / 1675 1225 / 1225 1300 / 1300 Balance -444 / -444 1296 / 1296 702 / 702 Weight 90 lb 89 lb 1.6 oz 93 lb 9 oz Microbiology Reports for the Last 24 Hours: Microbiology 10/04/18 18:08 Blood Blood Culture - Preliminary NO GROWTH AFTER 48 HOURS 10/04/18 18:11 Blood Blood Culture - Preliminary NO GROWTH AFTER 48 HOURS 10/04/18 14:35 Urine,Catheterized Urine Culture - Final NO GROWTH AFTER 48 HOURS - Constitutional no acute distress - *Routine Respiratory Exam Present: CTA bilaterally - *Routine Cardiovascular Exam Present: irregular rhythm - *Routine Abdominal Exam Present: soft, normoactive bowel sounds. Absent: tenderness - *Routine Extremities Exam Absent: cyanosis, clubbing, edema - *Routine Skin Exam Present: warm. Absent: rash - *Routine Neurological Exam Present: motor deficit (right side), altered mental status Assessment and Plan (1) Altered mental status Current visit: Yes Status: Acute Category: Medical Code(s): R41.82 - Altered mental status, unspecified (2) Hyponatremia Current visit: Yes Status: Acute Category: Medical Code(s): E87.1 - Hypo- osmolality and hyponatremia (3) Hypokalemia Current visit: Yes Status: Acute Category: Medical Code(s): E87.6 - Hypokalemia (4) Hypertension Current visit: Yes Status: Acute Category: Medical Code(s): I10 - Essential (primary) hypertension (5) SIRS (systemic inflammatory response syndrome) Current visit: Yes Status: Acute Category: Medical Code(s): R65.10 - Systemic inflammatory response syndrome (SIRS) of non-infectious origin without acute organ dysfunction (6) Aortic stenosis Current visit: Yes Status: Acute Category: Medical Code(s): I35.0 - Nonrheumatic aortic (valve) stenosis (7) Glaucoma Current visit: Yes Status: Acute Category: Medical Code(s): H40.9 - Unspecified glaucoma (8) Legally blind Current visit: Yes Status: Acute Category: Medical Code(s): H54.8 - Legal blindness, as defined in [place] (9) Pneumonia Current visit: Yes Status: Acute Category: Medical Code(s): J18.9 - Pneumonia, unspecified organism (10) UTI (urinary tract infection) Current visit: Yes Status: Acute Category: Medical Code(s): N39.0 - Urinary tract infection, site not specified (11) Left-sided cerebrovascular accident (CVA) Current visit: Yes Status: Acute Category: Medical Code(s): I63.9 - Cerebral infarction, unspecified (12) Right hemiparesis Current visit: Yes Status: Acute Category: Medical Code(s): G81.91 - Hemiplegia, unspecified affecting right dominant side - Assessment and plan all Dx Assessment and Plan for all problems:: Patient's MRI yesterday did show a CVA. Dr. Diamond initiated Lovenox. She seems to be a little bit better this morning. Will discuss further care with Dr. Durham. <Pb Durham - Last Filed: 10/07/18 13:50> Internal Medicine - PN: Subj *Date: 10/07/18 *Time: 13:44 Exam Vital signs and Labs for Last 24 Hours: Temp Pulse Resp BP Pulse Ox 98.8 F 87 17 126/86 95 10/07/18 11:38 10/07/18 13:24 10/07/18 11:38 10/07/18 11:38 10/07/18 11:38 Laboratory Results - last 24 hr 10/07/18 06:34: WBC 10.6, RBC 3.57 L, Hgb 11.1 L, Hct 35.5 L, MCV 99.5 H, MCH 31.2, MCHC 31.4 L, RDW 13.5, Plt Count 527 H, MPV 7.0 L, Neut % (Auto) 88.4 H, Lymph % (Auto) 3.3 L, [place] % (Auto) 8.1, Eos % (Auto) 0.2, Baso % (Auto) 0.1, Neut # (Auto) 9.3 H, Lymph # (Auto) 0.4 L, [place] # (Auto) 0.9, Eos # (Auto) 0.0, Baso # (Auto) 0.0, Total Counted 100, Neutrophils % (Manual) 93 H, Lymphocytes % (Manual) 3 L, Monocytes % (Manual) 4, Platelet Estimate Slight increase, RBC Morphology Normal 10/07/18 06:34: Sodium 134 L, Potassium 3.3 L, Chloride 95 L, Carbon Dioxide 26, Anion Gap 16.3 H, BUN 7, Creatinine 0.38 L, Estimated Creat Clear 27, Estimated GFR 161, Est GFR ( Amer) 194, Glucose 81, Calcium 8.8, Total Bilirubin 0.5, AST 30, ALT 26, Alkaline Phosphatase 98, Total Protein 6.9, Albumin 2.2 L, Globulin 4.7 H, Albumin/Globulin Ratio 0.5 L I & O for Last 24 hours: Intake & Output 10/05/18 10/06/18 10/07/18 10/08/18 11:59 11:59 11:59 11:59 Intake Total 1231 / 1231 2521 / 2521 2242 / 2242 120 / 120 Output Total 1675 / 1675 1225 / 1225 1300 / 1300 Balance -444 / -444 1296 / 1296 942 / 942 120 / 120 Weight 90 lb 89 lb 1.6 oz 93 lb 9 oz Microbiology Reports for the Last 24 Hours: Microbiology 10/04/18 18:08 Blood Blood Culture - Preliminary NO GROWTH AFTER 48 HOURS 10/04/18 18:11 Blood Blood Culture - Preliminary NO GROWTH AFTER 48 HOURS 10/04/18 14:35 Urine,Catheterized Urine Culture - Final NO GROWTH AFTER 48 HOURS Assessment and Plan (1) Pneumonia Current visit: Yes Status: Acute Category: Medical Code(s): J18.9 - Pneumonia, unspecified organism (2) UTI (urinary tract infection) Current visit: Yes Status: Acute Category: Medical Code(s): N39.0 - Urinary tract infection, site not specified (3) Left-sided cerebrovascular accident (CVA) Current visit: Yes Status: Acute Category: Medical Code(s): I63.9 - Cerebral infarction, unspecified (4) Altered mental status Current visit: Yes Status: Acute Category: Medical Code(s): R41.82 - Altered mental status, unspecified (5) Hyponatremia Current visit: Yes Status: Acute Category: Medical Code(s): E87.1 - Hypo- osmolality and hyponatremia (6) Hypokalemia Current visit: Yes Status: Acute Category: Medical Code(s): E87.6 - Hypokalemia (7) Hypertension Current visit: Yes Status: Acute Category: Medical Code(s): I10 - Essential (primary) hypertension (8) SIRS (systemic inflammatory response syndrome) Current visit: Yes Status: Acute Category: Medical Code(s): R65.10 - Systemic inflammatory response syndrome (SIRS) of non-infectious origin without acute organ dysfunction (9) Aortic stenosis Current visit: Yes Status: Acute Category: Medical Code(s): I35.0 - Nonrheumatic aortic (valve) stenosis (10) Glaucoma Current visit: Yes Status: Acute Category: Medical Code(s): H40.9 - Unspecified glaucoma (11) Legally blind Current visit: Yes Status: Acute Category: Medical Code(s): H54.8 - Legal blindness, as defined in [place] (12) Right hemiparesis Current visit: Yes Status: Acute Category: Medical Code(s): G81.91 - Hemiplegia, unspecified affecting right dominant side - Assessment and plan all Dx Assessment and Plan for all problems:: She is awake and attempts to answer questions but speech is nonsensical. She is eating very little. Her white count has come down to normal but chest x-ray shows worsening right-sided pneumonia. Sodium has improved. I have discussed her condition with family members including her brother, sister, [id number], and niece. They understand the gravity of her condition. They feel that her agitation is a way of communicating that she does not wish to have any treatment. Apparently she has indicated to them in the past that she feels that she is a burden to the family. Her DNR wishes have been honored. I reassured the family that current treatment is not prolonging her life. We discussed disposition options. They do not feel she would want to go to a long term and their preference would be to go home with hospice if in fact she survives her pneumonia.
[2018-10-07 11:58] LABS: Lymphocytes % 3 % (10-50); Monocytes % 4 % (2-9); Neutrophils % 93 % (42-76); Total Cells Counted 100
[2018-10-07 11:59] LABS: RBC Morphology Normal
--- NOTE | 2018-10-08 08:16 | Progress Note ---
Internal Medicine - PN: Subj *Date: 10/08/18 *Time: 08:13 Interval history: No issues reported by nursing staff. Pt has no complaints today. Exam Vital signs and Labs for Last 24 Hours: Temp Pulse Resp BP Pulse Ox 97.6 F 100 H 22 167/81 H 90 L 10/08/18 04:00 10/08/18 04:00 10/08/18 04:00 10/08/18 04:00 10/08/18 04:00 Laboratory Results - last 24 hr 10/07/18 06:34: Total Counted 100, Neutrophils % (Manual) 93 H, Lymphocytes % (Manual) 3 L, Monocytes % (Manual) 4, Platelet Estimate Slight increase, RBC Morphology Normal Vital Signs - 24 hr 10/07/18 11:38 10/07/18 13:24 10/07/18 16:00 Temperature 98.8 F 98.1 F Pulse Rate 87 Pulse Rate [Left Radial] 107 H 113 H Respiratory Rate 17 18 Blood Pressure [Right Arm] 126/86 119/79 02 Sat by Pulse Oximetry 95 91 L 10/07/18 19:07 10/07/18 19:50 10/07/18 20:00 Temperature 98.9 F Pulse Rate 104 H Pulse Rate [Left Radial] 113 H Respiratory Rate 18 Blood Pressure [Right Arm] 139/95 H 02 Sat by Pulse Oximetry 89 L 89 L 10/08/18 00:00 10/08/18 04:00 Temperature 97.6 F 97.6 F Pulse Rate Pulse Rate [Left Radial] 115 H 100 H Respiratory Rate 20 22 Blood Pressure [Right Arm] 157/93 H 167/81 H 02 Sat by Pulse Oximetry 92 L 90 L I & O for Last 24 hours: Intake & Output 10/05/18 10/06/18 10/07/18 10/08/18 23:59 23:59 23:59 23:59 Intake Total 2107 / 2207 2488 / 2488 1539 / 1539 Output Total 1375 / 1375 1350 / 1350 900 / 900 1000 / 1000 Balance 732 / 832 1138 / 1138 639 / 639 -1000 / -1000 Weight 90 lb 89 lb 1.597 oz 93 lb 9 oz 95 lb 2 oz - Constitutional no acute distress - *Routine HEENT Exam Head: Present: normocephalic Eye: Present: EOMI ENT: Present: mucous membranes moist - *Routine Neck Exam Present: supple. Absent: lymphadenopathy - *Routine Respiratory Exam Present: CTA bilaterally (diminished in the bases) - *Routine Cardiovascular Exam Present: irregular rhythm - *Routine Abdominal Exam Present: soft, normoactive bowel sounds. Absent: tenderness - *Routine Extremities Exam Absent: cyanosis, clubbing, edema - *Routine Skin Exam Present: warm. Absent: rash - *Routine Neurological Exam Present: alert, motor deficit (right upper extremity, nurse note reports some movement overnight) Assessment and Plan (1) Pneumonia Current visit: Yes Status: Acute Category: Medical Code(s): J18.9 - Pneumonia, unspecified organism (2) UTI (urinary tract infection) Current visit: Yes Status: Acute Category: Medical Code(s): N39.0 - Urinary tract infection, site not specified (3) Left-sided cerebrovascular accident (CVA) Current visit: Yes Status: Acute Category: Medical Code(s): I63.9 - Cerebral infarction, unspecified (4) Altered mental status Current visit: Yes Status: Acute Category: Medical Code(s): R41.82 - Altered mental status, unspecified (5) Hyponatremia Current visit: Yes Status: Acute Category: Medical Code(s): E87.1 - Hypo- osmolality and hyponatremia (6) Hypokalemia Current visit: Yes Status: Acute Category: Medical Code(s): E87.6 - Hypokalemia (7) Hypertension Current visit: Yes Status: Acute Category: Medical Code(s): I10 - Essen tial (primary) hypertension (8) SIRS (systemic inflammatory response syndrome) Current visit: Yes Status: Acute Category: Medical Code(s): R65.10 - Systemic inflammatory response syndrome (SIRS) of non-infectious origin without acute organ dysfunction (9) Aortic stenosis Current visit: Yes Status: Acute Category: Medical Code(s): I35.0 - Nonrheumatic aortic (valve) stenosis (10) Glaucoma Current visit: Yes Status: Acute Category: Medical Code(s): H40.9 - Unspecified glaucoma (11) Legally blind Current visit: Yes Status: Acute Category: Medical Code(s): H54.8 - Legal blindness, as defined in [place] (12) Right hemiparesis Current visit: Yes Status: Acute Category: Medical Code(s): G81.91 - Hemiplegia, unspecified affecting right dominant side - Assessment and plan all Dx Assessment and Plan for all problems:: Pt is stable, continue current care.
--- NOTE | 2018-10-08 09:12 | Progress Note ---
Internal Medicine - PN: Subj *Date: 10/08/18 *Time: 09:11 Exam Vital signs and Labs for Last 24 Hours: Temp Pulse Resp BP Pulse Ox 97.6 F 100 H 22 167/81 H 90 L 10/08/18 04:00 10/08/18 04:00 10/08/18 04:00 10/08/18 04:00 10/08/18 04:00 Laboratory Results - last 24 hr 10/07/18 06:34: Total Counted 100, Neutrophils % (Manual) 93 H, Lymphocytes % (Manual) 3 L, Monocytes % (Manual) 4, Platelet Estimate Slight increase, RBC Morphology Normal I & O for Last 24 hours: Intake & Output 10/05/18 10/06/18 10/07/18 10/08/18 23:59 23:59 23:59 23:59 Intake Total 2107 / 2207 2488 / 2488 1539 / 1539 Output Total 1375 / 1375 1350 / 1350 900 / 900 1000 / 1000 Balance 732 / 832 1138 / 1138 639 / 639 -1000 / -1000 Weight 40.823 kg 40.415 kg 42.439 kg 43.148 kg Assessment and Plan (1) Pneumonia Current visit: Yes Status: Acute Category: Medical Code(s): J18.9 - Pneumonia, unspecified organism (2) UTI (urinary tract infection) Current visit: Yes Status: Acute Category: Medical Code(s): N39.0 - Urinary tract infection, site not specified (3) Left-sided cerebrovascular accident (CVA) Current visit: Yes Status: Acute Category: Medical Code(s): I63.9 - Cerebral infarction, unspecified (4) Altered mental status Current visit: Yes Status: Acute Category: Medical Code(s): R41.82 - Altered mental status, unspecified (5) Hyponatremia Current visit: Yes Status: Acute Category: Medical Code(s): E87.1 - Hypo- osmolality and hyponatremia (6) Hypokalemia Current visit: Yes Status: Acute Category: Medical Code(s): E87.6 - Hypokalemia (7) Hypertension Current visit: Yes Status: Acute Category: Medical Code(s): I10 - Essential (primary) hypertension (8) SIRS (systemic inflammatory response syndrome) Current visit: Yes Status: Acute Category: Medical Code(s): R65.10 - Systemic inflammatory response syndrome (SIRS) of non-infectious origin without acute organ dysfunction (9) Aortic stenosis Current visit: Yes Status: Acute Category: Medical Code(s): I35.0 - Nonrheumatic aortic (valve) stenosis (10) Glaucoma Current visit: Yes Status: Acute Category: Medical Code(s): H40.9 - Unspecified glaucoma (11) Legally blind Current visit: Yes Status: Acute Category: Medical Code(s): H54.8 - [place] blindness, as defined in [place] (12) Right hemiparesis Current visit: Yes Status: Acute Category: Medical Code(s): G81.91 - Hemiplegia, unspecified affecting right dominant side The patient's infection will respond to the chosen ABx?: Yes Is the patient receiving the right drug, dose, and route?: Yes Could a more targeted ABx be ordered?: No (PATIENT AFEBRILE AND WBC WNL)
--- NOTE | 2018-10-09 08:21 | Progress Note ---
Internal Medicine - PN: Subj *Date: 10/09/18 *Time: 08:17 Interval history: Nurses report patient was more agitated through the night. Unable to take some oral meds. Exam Vital signs and Labs for Last 24 Hours: Temp Pulse Resp BP Pulse Ox 97.9 F 113 H 22 129/76 89 L 10/09/18 08:00 10/09/18 08:00 10/09/18 08:00 10/09/18 08:00 10/09/18 08:00 Vital Signs - 24 hr 10/08/18 12:00 10/08/18 16:00 10/08/18 19:43 Temperature 97.2 F L 97.0 F L 97.6 F Pulse Rate [Left Radial] 91 H 101 H 90 Respiratory Rate 20 22 24 Blood Pressure [Right Arm] 140/86 149/86 H 180/85 H 02 Sat by Pulse Oximetry 92 L 89 L 92 L 10/08/18 20:00 10/09/18 00:00 10/09/18 04:00 Temperature 97.4 F L 97.5 F L Pulse Rate [Left Radial] 87 68 81 Respiratory Rate 22 24 Blood Pressure [Right Arm] 147/80 H 139/84 02 Sat by Pulse Oximetry 90 L 90 L 89 L 10/09/18 08:00 Temperature 97.9 F Pulse Rate [Left Radial] 113 H Respiratory Rate 22 Blood Pressure [Right Arm] 129/76 02 Sat by Pulse Oximetry 89 L I & O for Last 24 hours: Intake & Output 10/06/18 10/07/18 10/08/18 10/09/18 23:59 23:59 23:59 23:59 Intake Total 2488 / 2488 1539 / 1539 120 / 120 1560 / 1560 Output Total 1350 / 1350 900 / 900 1600 / 1600 275 / 275 Balance 1138 / 1138 639 / 639 -1480 / -1480 1285 / 1285 Weight 89 lb 1.597 oz 93 lb 9 oz 95 lb 2 oz 96 lb 8 oz - Constitutional mild distress (with increased work of breathing) - *Routine Respiratory Exam Present: decreased breath sounds (in bases). Absent: wheezes - *Routine Cardiovascular Exam Present: RRR, tachycardia Assessment and Plan (1) Pneumonia Current visit: Yes Status: Acute Category: Medical Code(s): J18.9 - Pneumonia, unspecified organism (2) UTI (urinary tract infection) Current visit: Yes Status: Acute Category: Medical Code(s): N39.0 - Urina ry tract infection, site not specified (3) Left-sided cerebrovascular accident (CVA) Current visit: Yes Status: Acute Category: Medical Code(s): I63.9 - Cerebral infarction, unspecified (4) Altered mental status Current visit: Yes Status: Acute Category: Medical Code(s): R41.82 - Altered mental status, unspecified (5) Hyponatremia Current visit: Yes Status: Acute Category: Medical Code(s): E87.1 - Hypo- osmolality and hyponatremia (6) Hypokalemia Current visit: Yes Status: Acute Category: Medical Code(s): E87.6 - Hypokalemia (7) Hypertension Current visit: Yes Status: Acute Category: Medical Code(s): I10 - Essential (primary) hypertension (8) SIRS (systemic inflammatory response syndrome) Current visit: Yes Status: Acute Category: Medical Code(s): R65.10 - Systemic inflammatory response syndrome (SIRS) of non-infectious origin without acute organ dysfunction (9) Aortic stenosis Current visit: Yes Status: Acute Category: Medical Code(s): I35.0 - Nonrheumatic aortic (valve) stenosis (10) Glaucoma Current visit: Yes Status: Acute Category: Medical Code(s): H40.9 - Unspecified glaucoma (11) Legally blind Current visit: Yes Status: Acute Category: Medical Code(s): H54.8 - [place] blindness, as defined in [place] (12) Right hemiparesis Current visit: Yes Status: Acute Category: Medical Code(s): G81.91 - Hemiplegia, unspecified affecting right dominant side - Assessment and plan all Dx Assessment and Plan for all problems:: Patient seems to be declining. Patient is DNR. Family is clear that she would not want aggressive care, no change in treatment at this time.
--- NOTE | 2018-10-10 09:48 | Progress Note ---
Internal Medicine - PN: Subj *Date: 10/10/18 *Time: 09:38 Interval history: Patient continues to decline, she was started on Roxanol yesterday afternoon. Exam Vital signs and Labs for Last 24 Hours: Temp Pulse Resp BP Pulse Ox 97.1 F L 106 H 26 H 123/57 L 93 L 10/10/18 08:00 10/10/18 08:00 10/10/18 08:00 10/10/18 08:00 10/10/18 08:00 I & O for Last 24 hours: Intake & Output 10/07/18 10/08/18 10/09/18 10/10/18 23:59 23:59 23:59 23:59 Intake Total 1539 / 1539 120 / 120 2732 / 2737 5 / 5 Output Total 900 / 900 1600 / 1600 400 / 400 100 / 100 Balance 639 / 639 -1480 / -1480 2332 / 2337 -95 / -95 Weight 93 lb 9 oz 95 lb 2 oz 96 lb 8 oz 98 lb 5 oz Microbiology Reports for the Last 24 Hours: Microbiology 10/04/18 18:08 Blood Blood Culture - Final NO GROWTH AFTER 5 DAYS 10/04/18 18:11 Blood Blood Culture - Final NO GROWTH AFTER 5 DAYS - Constitutional no acute distress, somnolent - *Routine Respiratory Exam Present: decreased breath sounds, rhonchi Comments: tachypneic - *Routine Skin Exam Comments: cool to touch Assessment and Plan (1) Pneumonia Current visit: Yes Status: Acute Category: Medical Code(s): J18.9 - Pneumonia, unspecified organism (2) UTI (urinary tract infection) Current visit: Yes Status: Acute Category: Medical Code(s): N39.0 - Urinary tract infection, site not specified (3) Left-sided cerebrovascular accident (CVA) Current visit: Yes Status: Acute Category: Medical Code(s): I63.9 - Cerebral infarction, unspecified (4) Altered mental status Current visit: Yes Status: Acute Category: Medical Code(s): R41.82 - Altered mental status, unspecified (5) Hyponatremia Current visit: Yes Status: Acute Category: Medical Code(s): E87.1 - Hypo- osmolality and hyponatremia (6) Hypokalemia Current visit: Yes Status: Acute Category: Medical Code(s): E87.6 - Hypokalemia (7) Hypertension Current visit: Yes Status: Acute Category: Medical Code(s): I10 - Essential (primary) hypertension (8) SIRS (systemic inflammatory response syndrome) Current visit: Yes Status: Acute Category: Medical Code(s): R65.10 - Systemic inflammatory response syndrome (SIRS) of non-infectious origin without acute organ dysfunction (9) Aortic stenosis Current visit: Yes Status: Acute Category: Medical Code(s): I35.0 - Nonrheumatic aortic (valve) stenosis (10) Glaucoma Current visit: Yes Status: Acute Category: Medical Code(s): H40.9 - Unspecified glaucoma (11) Legally blind Current visit: Yes Status: Acute Category: Medical Code(s): H54.8 - Legal blindness, as defined in [place] (12) Right hemiparesis Current visit: Yes Status: Acute Category: Medical Code(s): G81.91 - Hemiplegia, unspecified affecting right dominant side - Assessment and plan all Dx Assessment and Plan for all problems:: Discussed care with family at bedside, will change to comfort measures only as patient appears to be actively dying.
--- NOTE | 2018-10-10 16:13 | Death Note ---
Pronouncement Note - Date and Time of Date of : 10/10/18 Time of : 15:45 - PCOD Preliminary cause of : Acute respiratory failure (stroke, pneumonia, UTI) - Additional Data Confirmation of : no pulse, no respirations, no heart sounds, pupils fixed and dilated Family: at bedside Attending physician: Pb Durham MD
--- NOTE | 2018-10-10 22:10 | Discharge Summary ---
General - General Admission date:: 10/05/18 Discharge date: 10/10/18 HPI HPI: Ms. Oconnor was an 88-year-old white female who was brought to the emergency room with altered mental status. She had a history of hypertension. 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 She was generally spry and healthy and still lived alone despite these infirmities and her family checked on her regularly. She was last seen in her usual state of health the night prior to admission. According to the family she had not been feeling well for about a week. She had diarrhea one day. She had not been eating or drinking well at home. She was f ound on the floor in her home with altered mental status and was brought to the emergency room. She had been worked up in the ER and diagnosed with pneumonia, urinary tract infection, dehydration, and electrolyte imbalance. Hospital Course Hospital Course: The patient's initial head CT showed nothing acute. She had a pelvic x-ray which showed nothing acute. Her chest x-ray showed a right lower lobe pneumonia. She had an abdominal and pelvic CT showing the right lower lobe pneumonia with effusion and severe constipation. It was felt her altered mental status was most likely on the basis of infection, electrolyte abnormalities, and dehydration, although a neurologic event was not ruled out. As her initial noncontrast CT showed nothing acute, Dr. Durham felt she may require further evaluation if she did not respond to treatment of her infection. She was empirically started on IV Rocephin and Zithromax. She did began getting agitated and was eating very minimally. She was started on a Dulcolax suppository for constipation and some duo nebs for wheezing. She had a repeat chest x-ray on 10/06/2018 showing a worsening right-sided pneumonia. Her urine culture showed no growth. Her blood cultures also showed no growth. By 10/06/2018, the patient became more agitated and confused. She then began losing strength in her right arm and right leg. An MRI was ordered of her brain. It showed an acute infarction in the left temporal lobe extending into the temporal occipital junction. Dr. Diamond did start the patient on Lovenox. The patient's mentation did seem to improve slightly after her stroke. She attempted to answer questions but her speech was nonsensical. Her white cell count did normalize even though her chest x-ray showed a worsening right-sided pneumonia. Her electrolytes improved. Dr. Durham discussed the patient's condition with her family and she indicated to them in the past that she felt she was a burden to her family and wished to be a DNR. The family did not feel she would want to go to a assisted and their preference was that she be discharged home with hospice. The patient did become more agitated on 10/09/2018 and was unable to take some of her oral medications. She seemed to be declining and her family was clear that she would not want aggressive care. She was started on Roxanol and was changed to comfort measures only as she appeared to be actively dying. The patient was pronounced on 10/10/2018 at 1545. Objective Vital signs: Temp Pulse Resp BP Pulse Ox 97.1 F L 106 H 26 H 123/57 L 93 L 10/10/18 08:00 10/10/18 08:00 10/10/18 08:00 10/10/18 08:00 10/10/18 08:00 Narrative: - Constitutional no acute distress, somnolent - *Routine Respiratory Exam Present: decreased breath sounds, rhonchi Comments: tachypneic - *Routine Skin Exam Comments: cool to touch DS: Diagnosis - Discharge Diagnosis (1) Pneumonia Status: Acute (2) UTI (urinary tract infection) Status: Acute (3) Left-sided cerebrovascular accident (CVA) Status: Acute (4) Altered mental status Status: Acute (5) Hyponatremia Status: Acute (6) Hypokalemia Status: Acute (7) Hypertension Status: Acute (8) SIRS (systemic inflammatory response syndrome) Status: Acute (9) Aortic stenosis Status: Acute (10) Glaucoma Status: Acute (11) Legally blind Status: Acute (12) Right hemiparesis Status: Acute Discharge Plan - Patient Discharge Instructions Patient Instructions: Pneumonia-Adult, DI for Pneumonia -- Adult, DI for Stroke-Ischemic, DI for Urinary Tract Infection (UTI) - Follow up Plan Disposition: Home Medications: Home Medications Medication Instructions Recorded Confirmed Type Amlodipine Besylate 10 mg PO DAILY 10/05/18 10/05/18 History Brimonidine Tartrate [Alphagan 1 drp EYE-BOTH TID 10/05/18 10/05/18 History 0.2% Ophth Soln 5mL] Latanoprost [Xalatan 0.005% Ophth 1 drp EYE-BOTH HS 10/05/18 10/05/18 History Soln 2.5mL] Prescriptions/Medication Reconciliation: No Action Brimonidine Tartrate [Alphagan 0.2% Ophth Soln 5mL] 1 drp EYE-BOTH TID Amlodipine Besylate 10 mg PO DAILY Latanoprost [Xalatan 0.005% Ophth Soln 2.5mL] 1 drp EYE-BOTH HS - Problem Reconciliation Problems Reviewed?: Yes
== END 2018-10-10 18:20 | disposition expired | DRG 64 ==
LOC: 2ND 13:25 → ER 13:25 → 2ND 17:30
PROVIDERS: ADMIT Family Medicine; ATTEND Family Medicine
CPT/HCPCS: 36415; 70450; 70553; 71010; 71045; 72125; 72170; 74176; 80048; 80053; 81001; 82140; 83605; 85007; 85025; 87040; 87086; 94640; 94761; 96365; 96367; 96375; 99284; A9576; G0378; J0456; J2405